=== PATIENT | male | born 1990 | race Two or more races ===

== ENCOUNTER 2016-11-16 20:19 | Emergency (ER) | payer MEDICAID ==
[2016-11-16 21:05] VITALS: BP 165/98; PULSE 118; RESP 22; TEMP 97.8; O2SAT 99
[2016-11-16] MEDS ORDERED: APAP/CODEINE 300/30 TAB PO ONE (21:26)
[2016-11-16] MEDS ORDERED: APAP/CODEINE 300/30 TAB ONE (21:33)
== END 2016-11-16 21:41 | disposition home or self-care (01) | DRG 153 ==
LOC: ED 20:19
DX: J06.9 Acute upper respiratory infection, unspecified (principal)
CPT/HCPCS: 99282

== ENCOUNTER 2017-05-01 14:23 | Emergency (ER) | payer MEDICAID, OTHER ==
[2017-05-01 14:27] VITALS: O2SAT 99
[2017-05-01] MEDS ORDERED: APAP/HYDROCODONE 325/5 TAB PO ONE (14:31)
[2017-05-01] MEDS ORDERED: KETOROLAC TROMETHAMINE 30 MG/ML SOL IM ONE (14:31)
[2017-05-01] MEDS ORDERED: KETOROLAC TROMETHAMINE 30 MG/ML SOL ONE (14:53)
[2017-05-01 15:13] VITALS: BP 149/91; PULSE 87; RESP 16; TEMP 96.8
== END 2017-05-01 15:20 | disposition home or self-care (01) | DRG 563 ==
LOC: ED 14:23
DX: S83.421A Sprain of lateral collateral ligament of right knee, initial encounter (principal); W22.8XXA Striking against or struck by other objects, initial encounter
CPT/HCPCS: 96372; 99282; 99283; J1885; L1830